=== PATIENT | female | born 2000 | race American Indian/Alaskan Native ===

== ENCOUNTER 2021-11-22 03:04 | Emergency (ER) | payer SELFPAY ==
[2021-11-22 04:03] LABS: Hematocrit 39.7 % (30.3-42.9); Hemoglobin 12.8 gm/dl (10.1-14.3); Mean Corpuscular HGB Conc 32 % (30-34); Mean Corpuscular Volume 87 fl (79-97); Platelet Count 272 K/mm3 (140-440); Red Blood Count 4.59 M/mm3 (3.65-5.03); Red Cell Distribution Width 13.4 % (13.2-15.2)
[2021-11-22 04:24] LABS: Alanine Aminotransferase 8 units/L (7-56); Albumin 4.7 g/dL (3.9-5); BUN/Creatinine Ratio 13; Blood Urea Nitrogen 14 mg/dL (7-17); Calcium 9.8 mg/dL (8.4-10.2); Hemolysis Index 8
[2021-11-22 04:41] LABS: Band Neutrophils # (Manual) 0.2 K/mm3; Basophils % (Manual) 0 % (0.0-1.8); Eosinophils % (Manual) 0 % (0.0-4.3); Total Cells Counted 100
[2021-11-22 04:42] LABS: Anisocytosis 1+; Platelet Estimate Consistent w Auto
[2021-11-22] MEDS ORDERED: ACETAMINOPHEN 325 MG/10.15 ML ORAL LIQD UNIT DOSE PO ONE (04:43)
[2021-11-22] MEDS ORDERED: ONDANSETRON 4 MG/2 ML INJ IV ONE (05:14)
[2021-11-22] MEDS ORDERED: MORPHINE 2 MG/1 ML INJ IV ONE (05:28)
[2021-11-22 06:26] LABS: Bacteria,Urine 1+ /HPF (Negative); Mucus,Urine 3+ /HPF
[2021-11-22] MEDS ORDERED: SODIUM CHLORIDE 0.9% 1000 ML 1,000 ML IV ONE (06:30)
[2021-11-22 06:32] LABS: Bilirubin,Urine Negative (Negative); Blood,Urine Moderate (Negative); Color,Urine Yellow (Yellow)
[2021-11-22 06:33] LABS: HCG Qualitative,Urine Negative (Negative)
[2021-11-22] MEDS ORDERED: cefTRIAXone/NS 1 GM/50 ML 1 GM/50 ML BAG IV ONE (07:17)
--- NOTE | 2021-11-22 07:58 | Cat Scan Report ---
CT ABDOMEN AND PELVIS WITH CONTRAST HISTORY: abdominal pain and leukocytosis; r/o appendicitis COMPARISON: None. TECHNIQUE: Axial CT images were obtained through the abdomen and pelvis after 100 cc of Omnipaque 350 IV contrast. Sagittal and coronal reformatted images. All CT scans at this location are performed us ing CT dose reduction for ALARA by means of automated exposure control. FINDINGS: CT ABDOMEN: Lung Bases: Clear. Liver: No significant abnormality. Biliary: No significant abnormality. Spleen: No significant abnormality. Unenlarged. Pancreas: No significant abnormality. Adrenals: No significant abnormality. Kidneys: No significant abnormality. Lymphatics: No lymphadenopathy. Vasculature: No significant abnormality. Bowel/Peritoneum: I believe I see the appendix in the anterior abdomen near midline on image 157, ser ies 2. The appendix is nondilated at 5 mm in diameter. No convincing findings of acute appendicitis a t this time. Distal small bowel loops are fluid-filled but nondilated. Mild circumferential thickenin g of the ascending colon is suggested consistent with a nonspecific colitis. The distal colon is yohannes apsed and grossly unremarkable. There is trace pelvic ascites but no evidence for abscess or free air . CT PELVIS: : The uterus, adnexa and bladder are unremarkable. Osseous Structures: No significant abnormality. Additional Findings: None. IMPRESSION: Low suspicion for acute appendicitis as described. Mild circumferential thickening of the ascending colon. There is fluid in distal small bowel loops an d proximal colon. No evidence for obstruction. Consider a nonspecific enteritis or colitis. Inflammat ory bowel disease could also be considered. Signer Name: Chip Gardiner Jr, MD Signed: 11/22/2021 7:54 AM Workstation Name: [id number]
[2021-11-22] MEDS ORDERED: KETOROLAC 30 MG/1 ML INJ IV ONE (08:18)
--- NOTE | 2021-11-22 08:22 | Emergency Department Report ---
ED Abdominal Pain HPI - General Chief Complaint: Abdominal Pain Stated Complaint: SEVERE ABD PAIN PUI?: No Time Seen by Provider: 11/22/21 06:24 Source: patient Mode of arrival: Ambulatory Limitations: No Limitations - History of Present Illness Initial Comments: Pt reports N/V and lower pelvic pain onset yesterday morning. Pt reports hx of ruptured ovarian cyst and she reports if feels the same. PT is aaox4, NADN. -: Gradual, hour(s) Location: diffuse, suprapubic Radiation: none Severity scale (0 -10): 3 Quality: aching Consistency: constant Improves With: nothing Worsens With: nothing Associated Symptoms: nausea, vomiting, dysuria. denies: constipation, hematemesis, melena, hematuria, anorexia, syncope - Related Data Previous Rx's Medication Instructions Recorded Last Taken Type Ciprofloxacin HCl 500 mg PO BID #14 11/22/21 Unknown Rx Dicyclomine [Bentyl] 10 mg PO QID #14 capsule 11/22/21 Unknown Rx Ondansetron [Zofran Odt] 4 mg PO Q8HR #14 tab.rapdis 11/22/21 Unknown Rx Allergies Allergy/AdvReac Type Severity Reaction Status Date / Time No Known Allergies Allergy Verified 11/22/21 06:26 ED Review of Systems ROS: Stated complaint: SEVERE ABD PAIN Other details as noted in HPI Constitutional: denies: chills, fever Eyes: denies: eye pain, eye discharge, vision change ENT: denies: ear pain, throat pain Respiratory: denies: cough, shortness of breath, wheezing Cardiovascular: denies: chest pain, palpitations Endocrine: no symptoms reported Gastrointestinal: denies: abdominal pain, nausea, diarrhea Genitourinary: denies: urgency, dysuria, discharge Musculoskeletal: denies: back pain, joint swelling, arthralgia Skin: denies: rash, lesions Neurological: denies: headache, weakness, paresthesias Psychiatric: denies: anxiety, depression Hematological/Lymphatic: denies: easy bleeding, easy bruising ED Past Medical Hx - Past Medical History Previous Medical History?: Yes Hx Hypertension: No Hx CVA: No Hx Asthma: Yes Additional medical history: Ruptured ovarian cyst - Surgical History Past Surgical History?: No - Medications Home Medications: Home Medications Medication Instructions Recorded Confirmed Last Taken Type Ciprofloxacin HCl 500 mg PO BID #14 11/22/21 Unknown Rx Dicyclomine [Bentyl] 10 mg PO QID #14 capsule 11/22/21 Unknown Rx Ondansetron [Zofran Odt] 4 mg PO Q8HR #14 tab.rapdis 11/22/21 Unknown Rx ED Physical Exam - General Limitations: No Limitations General appearance: alert, in no apparent distress - Head Head exam: Present: atraumatic, normocephalic - Eye Eye exam: Present: normal appearance - ENT ENT exam: Present: mucous membranes moist - Neck Neck exam: Present: normal inspection - Respiratory Respiratory exam: Present: normal lung sounds bilaterally. Absent: respiratory distress - Cardiovascular Cardiovascular Exam: Present: normal rhythm, tachycardia. Absent: systolic murmur, diastolic murmur, rubs, gallop - GI/Abdominal GI/Abdominal exam: Present: soft, tenderness, normal bowel sounds - Extremities Exam Extremities exam: Present: normal inspection - Back Exam Back exam: Present: normal inspection - Neurological Exam Neurological exam: Present: alert, oriented X3 - Psychiatric Psychiatric exam: Present: normal affect, normal mood - Skin Skin exam: Present: warm, dry, intact, normal color. Absent: rash ED Course Vital Signs 11/22/21 11/22/21 11/22/21 03:09 05:24 06:40 Temperature 98.2 F 98.5 F Pulse Rate 123 H 113 H 103 H Respiratory 18 18 18 Rate Blood Pressure 122/72 113/70 122/70 [Right] O2 Sat by Pulse 98 98 98 Oximetry ED Medical Decision Making - Lab Data Result diagrams: 11/22/21 03:40 11/22/21 03:40 - Radiology Data Radiology results: report reviewed, image reviewed - Medical Decision Making work up showed elevated wbc , uti noted , abx given fluids pain meds, ct scan showed colitis Critical care attestation.: If time is entered above; I have spent that time in minutes in the direct care of this critically ill patient, excluding procedure time. ED Disposition Clinical Impression: UTI (urinary tract infection), Gastroenteritis Disposition: 01 HOME / SELF CARE / HOMELESS Is pt being admited?: No Does the pt Need Aspirin: No Condition: Stable Instructions: Abdominal Pain (ED), Colitis, Urinary Tract Infection, Adult, [id number] Prescriptions: Dicyclomine [Bentyl] 10 mg PO QID #14 capsule Ciprofloxacin HCl 500 mg PO BID #14 Ondansetron [Zofran Odt] 4 mg PO Q8HR #14 tab.hueydis Referrals: PRIMARY CARE, [Primary Care Provider] - 3-5 Days
[2021-11-22 08:59] VITALS: BP 116/72
[2021-11-25] MEDS ORDERED: SODIUM CHLORIDE 0.9% 1000 ML 1,000 ML IV ONE (11:24)
[2021-11-25] MEDS ORDERED: cefTRIAXone/NS 1 GM/50 ML 1 GM/50 ML BAG IV ONE (11:24)
== END 2021-11-22 09:20 | disposition home or self-care (01) ==
LOC: ED 03:04
DX: N39.0 Urinary tract infection, site not specified (principal); K52.9 Noninfective gastroenteritis and colitis, unspecified; J45.909 Unspecified asthma, uncomplicated; Z98.890 Other specified postprocedural states; Z79.899 Other long term (current) drug therapy
CPT/HCPCS: 36415; 74177; 80053; 81001; 81025; 82150; 83690; 85007; 85025; 86140; 87086; 96361; 96365; 96375; 99284; J0696; J1885; J2270; J2405; J7030; Q9967